=== PATIENT | female | born 1975 | race Two or more races ===

== ENCOUNTER → 2019-08-31 | Outpatient (CLI) | payer SELFPAY ==
[~2019-08-31] MED LIST: ACETAMINOPHEN 500 MG TAB PO ONE; SODIUM CHLORIDE 0.9% 1,000 ML IV ONE; SODIUM CHLORIDE 0.9% 500 ML IV ONE; levoFLOXacin 500MG 100 ML IV ONE
[2019-08-31 12:45] VITALS: BP 119/83
[2019-08-31 13:08] VITALS: BP 127/80
[2019-08-31 13:54] VITALS: BP 136/79
[2019-08-31 14:09] VITALS: BP 115/74
[2019-08-31 15:30] VITALS: BP 107/70
[2019-08-31 15:46] LABS: Basophils # (auto) 0 10 ^3/uL (0-0.2); Basophils % (auto) 1.3 % (0.0-2.0); Eosinophils # (auto) 0 10 ^3/uL (0-0.8); Eosinophils % (auto) 0.5 % (0.0-7.0); Hematocrit 43.4 % (36.0-46.0); Hemoglobin 14.6 g/dL (12.2-16.2); Lymphocytes # (auto) 0.7 10 ^3/uL (0.4-5.4); Mean Corpuscular Hemoglobin 30.4 pg (28.0-32.0); Mean Corpuscular Hgb Conc. 33.7 g/dL (32.0-36.0); Mean Corpuscular Volume 90.1 fL (80.0-100.0); Monocytes # (auto) 0.2 10 ^3/uL (0-1.3); Monocytes % (auto) 6.1 % (0.0-12.0); Neutrophils # (auto) 1.7 10 ^3/uL (1.6-8.6); Neutrophils % (auto) 65.1 % (37.0-80.0); Nucleated Red Blood Cells % 0.5 %; Platelet Count (auto) 160 10^3/uL (140-450); Red Blood Cells 4.82 10^6/uL (4.0-5.20); Red Cell Distribution Width 13.3 % (11.8-14.3); White Blood Cell 2.6 10^3/uL (4.4-10.8)
[2019-08-31 15:50] LABS: Urine Blood Negative /uL (Negative); Urine Specific Gravity 1.007 (1.001-1.035)
[2019-08-31 15:55] LABS: Albumin 3.8 g/dL (3.4-5.0); Calcium 8.5 mg/dL (8.5-10.1); Magnesium 2.6 mg/dL (1.6-2.6); Potassium 3.6 mmol/L (3.5-5.1)
[2019-08-31 15:58] LABS: BUN/Creatinine Ratio 13.9; Bilirubin, Total 0.4 mg/dL (0.2-1.0); Total Protein 7.6 g/dL (6.4-8.2)
== END | disposition home or self-care (01) ==
LOC: Rad HDHVI 13:26
PROVIDERS: ATTEND Internal Medicine Cardiovascular Disease
DX: D64.9 Anemia, unspecified (principal); R00.2 Palpitations; N39.0 Urinary tract infection, site not specified
CPT/HCPCS: 36415; 71046; 80053; 81003; 83735; 85025; 96361; 96365; 96368; G0463; J1956